=== PATIENT | female | born 1950 | race Caucasian/White ===

== ENCOUNTER 2021-05-10 11:16 | Inpatient (IN) ==
[2021-05-10 12:01] LABS: Basophils % 0.3 % (0.0-0.8); Eosinophils % 0.1 % (0.00-10.9); Hematocrit 44.2 VOL% (35.7-47.0); Hemoglobin 14.6 GM/DL (12.0-16.0); Immature Granulocytes % 1.4 %; Immature Granulocytes Absolute 0.19 #; Lymphocytes # 1.3 10*3/uL (1.4-4.0); Lymphocytes % 9.3 % (21.3-54.2); Mean Corpuscular Volume 88.6 FL (87-102); Mean Platelet Volume 10.4 FL (9.6-12.0); Monocytes % 7.8 % (1.7-12.7); Neutrophils % 81.1 % (38.7-73.9); Platelet Count 267 T/CUMM (130-400); Red Blood Count 4.99 MC/CUMM (3.8-5.5); Red Cell Distribution Width 12.6 % (9.3-17.3); White Blood Count 13.9 T/CUMM (4-12)
[2021-05-10 12:38] LABS: Albumin 2.8 G/DL (3.4-5.0); Bilirubin,Total 1.3 MG/DL (0.20-1.00); Calcium 9.3 MG/DL (8.5-10.1); Ferritin 511.2 ng/ml (8-252); Osmolality,Calculated 272.5 MOS/KG (273-304); Potassium 3.1 MMOL/L (3.5-5.1); Total Protein 8.2 G/DL (6.4-8.2)
[2021-05-10] MEDS ORDERED: ENOXAPARIN 80 MG/0.8 ML SYRINGE SUBCUT STA (13:07)
[2021-05-10] MEDS ORDERED: ONDANSETRON 4 MG/2 ML VIAL IV PRN (15:04)
[2021-05-10] MEDS ORDERED: GLUCAGON 1 MG VIAL IM PRN (15:04)
[2021-05-10] MEDS ORDERED: DEXTROSE 50% 25 GM/50 ML VIAL IV PRN (15:04)
[2021-05-10] MEDS ORDERED: AZITHROMYCIN INJ 500 MG in SODIUM CHLORIDE 0.9% 250 ML IV ONE (15:20)
[2021-05-10 15:38] LABS: Bilirubin,Urine Negative (Negative); Blood, Urine Moderate mg/dL (Negative); Glucose,Urine (UA) 150 mg/dL (Negative); Ketones,Urine 80 mg/dL (Negative); Mucus,Urine Occasional /LPF (Occasional); Nitrite,Urine Negative (Negative); Protein,Urine 100 MG/DL; RBC,Urine 7 /HPF (0-4); Squamous Epithelial Cell,Urine Moderate /HPF (0-10); Urine Appearance CLEAR (Clear); Urine Color Yellow (Yellow); Urine Urobilinogen < 2.0 EU/DL (0.2-1.0)
[2021-05-10 15:46] LABS: Urine Specific Gravity > 1.069 (1.001-1.035)
[2021-05-10] MEDS: HEPARIN DRIP 25,000 UNITS/500 ML PREMIX IV SCH (16:55)
[2021-05-10] MEDS: ASCORBIC ACID 500 MG TABLET PO SCH (22:00)
[2021-05-10] MEDS: FAMOTIDINE 20 MG TABLET PO SCH (22:00)
[2021-05-10] MEDS: MELATONIN 3 MG TABLET PO SCH (22:00)
[2021-05-10] MEDS: ACETAMINOPHEN 325 MG TABLET PO PRN (22:00)
[2021-05-10] MEDS: INSULIN REGULAR 100 UNIT/ML SUBCUT SCH (23:33)
[2021-05-11 04:43] LABS: ABG Base Excess 4.9 MMOL/L (-2.5-2.5); ABG HCO3 28.8 MMOL/L (20-26); ABG Oxygen Saturation 97.1 % (95-100); ABG PCO2 41.6 MM HG (35-48); ABG PH 7.456 (7.35-7.45); ABG TCO2 25.6 MMOL/L (23-27); Allen Test Positive
[2021-05-11 06:14] LABS: Basophils # 0.1 10*3/uL (0.0-0.2); Basophils % 0.6 % (0.0-0.8); Eosinophils % 0.1 % (0.00-10.9); Hematocrit 39.1 VOL% (35.7-47.0); Hemoglobin 13.3 GM/DL (12.0-16.0); Immature Granulocytes % 1.7 %; Immature Granulocytes Absolute 0.21 #; Lymphocytes # 1.7 10*3/uL (1.4-4.0); Lymphocytes % 13.6 % (21.3-54.2); Mean Corpuscular Volume 88.3 FL (87-102); Mean Platelet Volume 10.7 FL (9.6-12.0); Monocytes % 9.1 % (1.7-12.7); Neutrophils % 74.9 % (38.7-73.9); Platelet Count 244 T/CUMM (130-400); Red Blood Count 4.43 MC/CUMM (3.8-5.5); Red Cell Distribution Width 12.5 % (9.3-17.3); White Blood Count 12.7 T/CUMM (4-12)
[2021-05-11 06:46] LABS: Osmolality,Calculated 280.1 MOS/KG (273-304); Potassium 3.2 MMOL/L (3.5-5.1)
[2021-05-11] MEDS: CETIRIZINE 10 MG TABLET PO SCH (09:21)
[2021-05-11] MEDS: INSULIN REGULAR 100 UNIT/ML SUBCUT SCH ×4 (09:21→20:53)
[2021-05-11] MEDS: ASCORBIC ACID 500 MG TABLET PO SCH ×2 (09:21→20:54)
[2021-05-11] MEDS: DEXAMETHASONE 4 MG/1 ML VIAL IV SCH (09:21)
[2021-05-11] MEDS: AZITHROMYCIN 250 MG TABLET PO SCH (09:21)
[2021-05-11] MEDS: POTASSIUM CHLORIDE 20 MEQ TABLET PO PRN ×4 (09:22→17:00)
[2021-05-11] MEDS: CHOLECALCIFEROL 1,000 UNIT TABLET PO SCH (09:22)
[2021-05-11] MEDS: FAMOTIDINE 20 MG TABLET PO SCH ×2 (09:22→20:54)
[2021-05-11] MEDS: ZINC GLUCONATE 50 MG TABLET PO SCH (09:22)
[2021-05-11] MEDS: INSULIN GLARGINE 100 UNIT/ML SUBCUT SCH (10:56)
[2021-05-11] MEDS ORDERED: DEXTROSE 50% 25 GM/50 ML VIAL IV PRN (12:32)
[2021-05-11] MEDS ORDERED: GLUCAGON 1 MG VIAL IM PRN (12:32)
[2021-05-11 12:45] LABS: Risk Ratio 3.53
[2021-05-11] MEDS: HEPARIN DRIP 25,000 UNITS/500 ML PREMIX IV SCH ×2 (12:52→17:50)
[2021-05-11] MEDS: LOSARTAN 25 MG TABLET PO SCH (14:26)
[2021-05-11] MEDS: MELATONIN 3 MG TABLET PO SCH (20:54)
[2021-05-12] MEDS: HEPARIN DRIP 25,000 UNITS/500 ML PREMIX IV SCH (06:23)
[2021-05-12 08:32] LABS: Basophils % 0.3 % (0.0-0.8); Hematocrit 37.7 VOL% (35.7-47.0); Hemoglobin 12.8 GM/DL (12.0-16.0); Immature Granulocytes % 1.6 %; Immature Granulocytes Absolute 0.25 #; Lymphocytes # 1.4 10*3/uL (1.4-4.0); Lymphocytes % 9.2 % (21.3-54.2); Mean Corpuscular Volume 88.9 FL (87-102); Mean Platelet Volume 10.5 FL (9.6-12.0); Monocytes % 5.2 % (1.7-12.7); Neutrophils % 83.7 % (38.7-73.9); Platelet Count 299 T/CUMM (130-400); Red Blood Count 4.24 MC/CUMM (3.8-5.5); Red Cell Distribution Width 12.5 % (9.3-17.3); White Blood Count 15.5 T/CUMM (4-12)
[2021-05-12 08:55] LABS: Albumin 2.4 G/DL (3.4-5.0); Calcium 9.2 MG/DL (8.5-10.1); Osmolality,Calculated 275.4 MOS/KG (273-304); Potassium 3.6 MMOL/L (3.5-5.1); Total Protein 7.2 G/DL (6.4-8.2)
[2021-05-12] MEDS: DEXAMETHASONE 4 MG/1 ML VIAL IV SCH ×4 (08:58→21:15)
[2021-05-12] MEDS: CHOLECALCIFEROL 1,000 UNIT TABLET PO SCH (08:59)
[2021-05-12] MEDS: INSULIN REGULAR 100 UNIT/ML SUBCUT SCH ×4 (08:59→20:40)
[2021-05-12] MEDS: INSULIN GLARGINE 100 UNIT/ML SUBCUT SCH (08:59)
[2021-05-12] MEDS: ASCORBIC ACID 500 MG TABLET PO SCH ×2 (09:00→20:40)
[2021-05-12] MEDS: LOSARTAN 25 MG TABLET PO SCH (09:00)
[2021-05-12] MEDS: FAMOTIDINE 20 MG TABLET PO SCH ×2 (09:00→20:40)
[2021-05-12] MEDS: CETIRIZINE 10 MG TABLET PO SCH (09:00)
[2021-05-12] MEDS: AZITHROMYCIN 250 MG TABLET PO SCH (09:00)
[2021-05-12] MEDS: ZINC GLUCONATE 50 MG TABLET PO SCH (09:01)
[2021-05-12] MEDS ORDERED: INSULIN GLARGINE 100 UNIT/ML SUBCUT ONE (10:11)
[2021-05-12] MEDS: cefTRIAXone 1,000 MG in SODIUM CHLORIDE 0.9% 100 ML IV SCH (11:54)
[2021-05-12] MEDS: MELATONIN 3 MG TABLET PO SCH (20:40)
[2021-05-13] MEDS: ALBUTEROL INHALER 18 GM INH PRN
[2021-05-13 02:30] LABS: Basophils % 0.2 % (0.0-0.8); Hematocrit 33.8 VOL% (35.7-47.0); Hemoglobin 11.5 GM/DL (12.0-16.0); Immature Granulocytes % 2.3 %; Immature Granulocytes Absolute 0.24 #; Lymphocytes # 0.9 10*3/uL (1.4-4.0); Lymphocytes % 8.1 % (21.3-54.2); Mean Corpuscular Volume 88.9 FL (87-102); Mean Platelet Volume 10.8 FL (9.6-12.0); Neutrophils % 86.4 % (38.7-73.9); Platelet Count 290 T/CUMM (130-400); Red Cell Distribution Width 12.3 % (9.3-17.3); White Blood Count 10.5 T/CUMM (4-12)
[2021-05-13] MEDS: HEPARIN DRIP 25,000 UNITS/500 ML PREMIX IV SCH (02:44)
[2021-05-13 02:52] LABS: Albumin 2.2 G/DL (3.4-5.0); Bilirubin,Total 1.1 MG/DL (0.20-1.00); Calcium 9.1 MG/DL (8.5-10.1); Ferritin 731.9 ng/ml (8-252); Osmolality,Calculated 274.4 MOS/KG (273-304); Potassium 3.7 MMOL/L (3.5-5.1); Total Protein 6.7 G/DL (6.4-8.2)
[2021-05-13] MEDS: DEXAMETHASONE 4 MG/1 ML VIAL IV SCH ×3 (04:00→20:31)
[2021-05-13] MEDS: ACETAMINOPHEN 325 MG TABLET PO PRN (06:20)
[2021-05-13] MEDS ORDERED: INSULIN GLARGINE 100 UNIT/ML SUBCUT SCH ×3 (09:00)
[2021-05-13] MEDS: CHOLECALCIFEROL 1,000 UNIT TABLET PO SCH (09:15)
[2021-05-13] MEDS: LOSARTAN 25 MG TABLET PO SCH (09:15)
[2021-05-13] MEDS: ZINC GLUCONATE 50 MG TABLET PO SCH (09:15)
[2021-05-13] MEDS: FAMOTIDINE 20 MG TABLET PO SCH ×2 (09:15→20:30)
[2021-05-13] MEDS: AZITHROMYCIN 250 MG TABLET PO SCH (09:16)
[2021-05-13] MEDS: APIXABAN 5 MG TABLET PO SCH ×2 (09:16→20:31)
[2021-05-13] MEDS: CETIRIZINE 10 MG TABLET PO SCH (09:16)
[2021-05-13] MEDS: ASCORBIC ACID 500 MG TABLET PO SCH ×2 (09:17→20:30)
[2021-05-13] MEDS: INSULIN REGULAR 100 UNIT/ML SUBCUT SCH ×4 (09:18→20:30)
[2021-05-13] MEDS: cefTRIAXone 1,000 MG in SODIUM CHLORIDE 0.9% 100 ML IV SCH (09:57)
[2021-05-13] MEDS: MELATONIN 3 MG TABLET PO SCH (20:30)
[2021-05-14] MEDS: DEXAMETHASONE 4 MG/1 ML VIAL IV SCH ×4 (02:49→18:43)
[2021-05-14] MEDS: ALBUTEROL INHALER 18 GM INH PRN ×2 (06:20→11:50)
[2021-05-14 06:40] LABS: Albumin 2.3 G/DL (3.4-5.0); Bilirubin,Total 0.4 MG/DL (0.20-1.00); Calcium 9.1 MG/DL (8.5-10.1); Ferritin 585.1 ng/ml (8-252); Potassium 4.2 MMOL/L (3.5-5.1); Total Protein 6.3 G/DL (6.4-8.2)
[2021-05-14] MEDS: AZITHROMYCIN 250 MG TABLET PO SCH (09:16)
[2021-05-14] MEDS: CETIRIZINE 10 MG TABLET PO SCH (09:16)
[2021-05-14] MEDS: APIXABAN 5 MG TABLET PO SCH ×2 (09:16→21:55)
[2021-05-14] MEDS: ZINC GLUCONATE 50 MG TABLET PO SCH (09:16)
[2021-05-14] MEDS: ASCORBIC ACID 500 MG TABLET PO SCH ×2 (09:16→21:55)
[2021-05-14] MEDS: CHOLECALCIFEROL 1,000 UNIT TABLET PO SCH (09:16)
[2021-05-14] MEDS: FAMOTIDINE 20 MG TABLET PO SCH ×2 (09:16→21:55)
[2021-05-14] MEDS: LOSARTAN 25 MG TABLET PO SCH (09:17)
[2021-05-14] MEDS: cefTRIAXone 1,000 MG in SODIUM CHLORIDE 0.9% 100 ML IV SCH ×2 (09:18→10:53)
[2021-05-14] MEDS: INSULIN GLARGINE 100 UNIT/ML SUBCUT SCH (09:18)
[2021-05-14] MEDS: INSULIN REGULAR 100 UNIT/ML SUBCUT SCH ×4 (10:51→21:55)
[2021-05-14] MEDS: INSULIN LISPRO 100 UNIT/ML SUBCUT SCH (17:47)
[2021-05-14] MEDS ORDERED: amLODIPine 10 MG TABLET PO ONE (20:31)
[2021-05-14] MEDS: guaiFENesin/DM ER 600-30 MG TABLET PO SCH (21:55)
[2021-05-14] MEDS: MELATONIN 3 MG TABLET PO SCH (21:55)
[2021-05-15 06:08] LABS: Basophils # 0.1 10*3/uL (0.0-0.2); Basophils % 0.7 % (0.0-0.8); Hematocrit 37.4 VOL% (35.7-47.0); Hemoglobin 12.4 GM/DL (12.0-16.0); Immature Granulocytes % 6.1 %; Immature Granulocytes Absolute 0.65 #; Lymphocytes # 1.1 10*3/uL (1.4-4.0); Lymphocytes % 10.4 % (21.3-54.2); Mean Corpuscular HGB Conc 33.2 GM/DL (32-36); Mean Corpuscular Volume 90.3 FL (87-102); Mean Platelet Volume 10.4 FL (9.6-12.0); Monocytes % 6.3 % (1.7-12.7); Neutrophils % 76.5 % (38.7-73.9); Platelet Count 328 T/CUMM (130-400); Red Blood Count 4.14 MC/CUMM (3.8-5.5); Red Cell Distribution Width 12.5 % (9.3-17.3); White Blood Count 10.7 T/CUMM (4-12)
[2021-05-15 06:39] LABS: Albumin 2.3 G/DL (3.4-5.0); Bilirubin,Total 0.6 MG/DL (0.20-1.00); Calcium 8.9 MG/DL (8.5-10.1); Ferritin 538.1 ng/ml (8-252); Osmolality,Calculated 278.4 MOS/KG (273-304); Potassium 3.9 MMOL/L (3.5-5.1); Total Protein 6.6 G/DL (6.4-8.2)
[2021-05-15 06:55] LABS: Hypochromasia 1+; Lymphocytes 7 % (20-55); Microcytosis 1+; Platelet Estimate Adequate; Segmented Neutrophils 88 % (50-85); Total Cells Counted 100
[2021-05-15] MEDS: INSULIN REGULAR 100 UNIT/ML SUBCUT SCH ×4 (09:06→21:40)
[2021-05-15] MEDS: guaiFENesin/DM ER 600-30 MG TABLET PO SCH ×2 (09:12→21:40)
[2021-05-15] MEDS: FAMOTIDINE 20 MG TABLET PO SCH ×2 (09:12→21:40)
[2021-05-15] MEDS: LOSARTAN 25 MG TABLET PO SCH (09:12)
[2021-05-15] MEDS: CETIRIZINE 10 MG TABLET PO SCH (09:12)
[2021-05-15] MEDS: APIXABAN 5 MG TABLET PO SCH ×2 (09:12→21:40)
[2021-05-15] MEDS: ZINC GLUCONATE 50 MG TABLET PO SCH (09:12)
[2021-05-15] MEDS: CHOLECALCIFEROL 1,000 UNIT TABLET PO SCH (09:12)
[2021-05-15] MEDS: ASCORBIC ACID 500 MG TABLET PO SCH ×2 (09:12→21:40)
[2021-05-15] MEDS: INSULIN GLARGINE 100 UNIT/ML SUBCUT SCH (09:13)
[2021-05-15] MEDS: INSULIN LISPRO 100 UNIT/ML SUBCUT SCH ×3 (09:13→16:38)
[2021-05-15] MEDS: DEXAMETHASONE 4 MG/1 ML VIAL IV SCH ×2 (09:13→21:40)
[2021-05-15] MEDS: cefTRIAXone 1,000 MG in SODIUM CHLORIDE 0.9% 100 ML IV SCH (09:45)
[2021-05-15] MEDS: MELATONIN 3 MG TABLET PO SCH (21:40)
[2021-05-16 06:30] LABS: Albumin 2.4 G/DL (3.4-5.0); Bilirubin,Total 1.1 MG/DL (0.20-1.00); Potassium 4.4 MMOL/L (3.5-5.1); Total Protein 6.5 G/DL (6.4-8.2)
[2021-05-16] MEDS: FAMOTIDINE 20 MG TABLET PO SCH (09:42)
[2021-05-16] MEDS: CHOLECALCIFEROL 1,000 UNIT TABLET PO SCH (09:42)
[2021-05-16] MEDS: ASCORBIC ACID 500 MG TABLET PO SCH (09:42)
[2021-05-16] MEDS: guaiFENesin/DM ER 600-30 MG TABLET PO SCH (09:42)
[2021-05-16] MEDS: ZINC GLUCONATE 50 MG TABLET PO SCH (09:42)
[2021-05-16] MEDS: CETIRIZINE 10 MG TABLET PO SCH (09:42)
[2021-05-16] MEDS: LOSARTAN 25 MG TABLET PO SCH (09:43)
[2021-05-16] MEDS: APIXABAN 5 MG TABLET PO SCH (09:43)
[2021-05-16] MEDS: INSULIN LISPRO 100 UNIT/ML SUBCUT SCH ×2 (09:43→12:35)
[2021-05-16] MEDS: INSULIN GLARGINE 100 UNIT/ML SUBCUT SCH (09:44)
[2021-05-16] MEDS: INSULIN REGULAR 100 UNIT/ML SUBCUT SCH (09:44)
[2021-05-16] MEDS: cefTRIAXone 1,000 MG in SODIUM CHLORIDE 0.9% 100 ML IV SCH (09:45)
[2021-05-16] MEDS: DEXAMETHASONE 4 MG/1 ML VIAL IV SCH (09:45)
[2021-05-16] MEDS ORDERED: amLODIPine 5 MG TABLET PO SCH (10:30)
[2021-05-16] MEDS ORDERED: INSULIN LISPRO 100 UNIT/ML SUBCUT SCH (11:30)
[2021-05-16 12:56] VITALS: BP 175/90
[2021-05-20] MEDS ORDERED: APIXABAN 5 MG TABLET PO SCH (09:00)
== END 2021-05-16 15:30 | disposition home or self-care (01) | DRG 175 ==
LOC: N.ED 11:16 → N.EDINP 15:03 → SUATTDRO 15:03 → N.2E 17:18
PROVIDERS: ADMIT Internal Medicine; ATTEND Internal Medicine